=== PATIENT | male | born 1960 | race Caucasian/White ===

== ENCOUNTER 2017-05-10 09:00 | Emergency (ER) | payer SELFPAY ==
[~2017-05-10] VITALS: Ht 162.6 cm; Wt 81.0 kg
[2017-05-10 09:02] VITALS: Ht 162.6 cm; Wt 81.0 kg
[2017-05-10 10:04] LABS: ADD UMIC NO; UR ASCORBIC ACID NEGATIVE (NEGATIVE); UR BILIRUBIN (Dip) NEGATIVE (NEGATIVE); UR BLOOD (Dip) NEGATIVE (NEGATIVE); UR CLARITY CLEAR (CLEAR); UR COLOR STRAW (YELLOW); UR GLUCOSE (Dip) NEGATIVE (NEGATIVE); UR KETONES (Dip) NEGATIVE (NEGATIVE); UR LEUKOCYTE ESTERASE (Dip) NEGATIVE Leu/ul (NEGATIVE); UR NITRITE (Dip) NEGATIVE (NEGATIVE); UR SPECIFIC GRAVITY (Dip) 1.009 (1.003-1.030); UR TOTAL PROTEIN (Dip) NEGATIVE (NEGATIVE); UR UROBILINOGEN (Dip) NEGATIVE (NEGATIVE)
--- NOTE | 2017-05-10 11:46 | RADRPT ---
PROCEDURE: Scrotal ultrasound CLINICAL INDICATION: Scrotal pain. TECHNIQUE: Scrotal ultrasound was performed with sagittal and transverse views. Rao scale and co hallie imaging was performed. Images were reviewed on high resolution PACS monitors. COMPARISON: None available FINDINGS: The right testicle measures 3.5 x 1.8 x 2.70 cm. There is normal size and echogenicity and morphology of the right testicle with normal blood flow. There is a 6 mm right epididymal head cyst. The epididymis is otherwise unremarkable. Small right hydrocele. No evidence of right sided varicocele. The left testicle measures 2.6 x 1.8 x 3.7 cm. There is normal size and echogenicity and morphology of the left testicle with normal blood flow. The left epididymis is normal. There is borderline left varicocele. There is no evidence of left hydrocele. Soft tissues are unremarkable. IMPRESSION: 1. Borderline left varicocele. 2. Small right hydrocele. 3. 6 mm right epididymal head cyst, normal variant. RPTAT: QQ .Reyes Roth MD, Date Time Electronically viewed and signed by .Reyes Roth MD, on 05/10/2017 11:45 .M/
--- NOTE | 2017-05-10 12:30 | ERD ---
ER Documentation Chief Complaint Date/Time DATE: 05/10/17 TIME: 12:20 Chief Complaint frequent urination and testicular pain x 3 months HPI 56-year-old male patient with a past medical history of diabetes, hypertension, hyperlipidemia presents to the ED complaining of bilateral testicular pain since 3 months ago as well as burning with urination since 1 week ago. States that he feels like at times he has urinary retention. Reports that he will also urinate 8 times per day. Describes the pain as a pulsating sensation. States he is taking metformin, losartan and amlodipine. States that his blood sugar is 120 today. Denies any chest pain, shortness of breath, abdominal pain , nausea, vomiting, diarrhea. ROS All systems reviewed and are negative except as per history of present illness. Allergies Allergies: Coded Allergies: No Known Allergy (Unverified , 05/10/17) PMhx/Soc Medical and Surgical Hx: pt denies Surgical Hx History of Surgery: No Anesthesia Reaction: No Hx Neurological Disorder: No Hx Respiratory Disorders: No Hx Cardiac Disorders: Yes (HTN) Hx Psychiatric Problems: No Hx Miscellaneous Medical Probl: Yes (DM) Hx Alcohol Use: No Hx Substance Use: No Hx Tobacco Use: No Smoking Status: Never smoker Physical Exam Vitals Vital Signs Date Time Temp Pulse Resp B/P Pulse Ox O2 Delivery O2 Flow Rate FiO2 05/10/17 09:02 97.5 58 18 156/83 98 Physical Exam Const: Nwu-[id number]-aznpessac, well-nourished. In no acute distress. Head: Atraumatic, normocephalic Eyes: Normal Conjunctiva without injection. No purulent discharge. ENT: Normal external ear, nose. Moist oropharynx without tonsillar exudates. Non -erythematous pharynx. Uvula midline. No drooling. No trismus. Neck: No cervical midline tenderness. Full range of motion. No meningismus. No cervical lymphadenopathy. No JVD. Resp: Clear to auscultation bilaterally. No wheezing, rhonchi, rales, or crackles. No accessory muscle use. No retractions. Cardio: Regular rate and rhythm. No murmurs, rubs or gallops. Abd: Soft, nontender, non distended. Normal bowel sounds. No palpable masses. No rebound tenderness. No guarding. Negative McBurney's point. Negative psoas sign. Negative obturator sign. : Uncircumcised penis. No phimosis. No paraphimosis. No penile discharge. No edema or erythema or warmth to touch. Tenderness palpation of the bilateral testicles. Skin: No petechiae or rashes Back: No midline tenderness. No CVA tenderness. Ext: No cyanosis, or edema. Neur: Awake and alert. Normal gait. Normal coordination. Psych: Normal Mood and Affect Results 24 hrs Laboratory Tests Test 05/10/17 09:36 Urine Color STRAW Urine Clarity CLEAR Urine pH 5.0 Urine Specific [place] 1.009 Urine Ketones NEGATIVEmg/dL Urine Nitrite NEGATIVEmg/dL Urine Bilirubin NEGATIVEmg/dL Urine Urobilinogen NEGATIVEmg/dL Urine Leukocyte Esterase NEGATIVELeu/ul Urine Hemoglobin NEGATIVEmg/dL Urine Glucose NEGATIVEmg/dL Urine Total Protein NEGATIVEmg/dl Procedures/MDM This is a 56-year-old male patient with a past medical history of diabetes, hypertension, hyperlipidemia presents to the ED complaining of testicular pain and intermittent frequent urination and urinary retention. Patient is afebrile and nontoxic-appearing. Patient has normal vital signs. A scrotal ultrasound and urinalysis was ordered to further evaluate patient. PROCEDURE: Scrotal ultrasound CLINICAL INDICATION: Scrotal pain. TECHNIQUE: Scrotal ultrasound was performed with sagittal and transverse views. Rao scale and color imaging was performed. Images were reviewed on high resolution PACS monitors. COMPARISON: None available FINDINGS: The right testicle measures 3.5 x 1.8 x 2.70 cm. There is normal size and echogenicity and morphology of the right testicle with normal blood flow. There is a 6 mm right epididymal head cyst. The epididymis is otherwise unremarkable. Small right hydrocele. No evidence of right sided varicocele. The left testicle measures 2.6 x 1.8 x 3.7 cm. There is normal size and echogenicity and morphology of the left testicle with normal blood flow. The left epididymis is normal. There is borderline left varicocele. There is no evidence of left hydrocele. Soft tissues are unremarkable. IMPRESSION: 1. Borderline left varicocele. 2. Small right hydrocele. 3. 6 mm right epididymal head cyst, normal variant. Urinalysis showed no leukocyte esterase, nitrite, hematuria. Patient has a left varicocele, small right hydrocele and 6 mm right epididymal head cyst. Low suspicion for testicular torsion, urinary tract infection, pyelonephritis, STDs , prostatitis, or other emergent conditions. Patient strictly instructed to follow up with a urologist for further evaluation and treatment. Patient may likely have BPH and should get further evaluation and treatment. Patient agreed to return for any worsening symptoms and questions were answered. Patient is hemodynamically stable. Departure Diagnosis: Primary Impression: Genitourinary symptoms Condition: Stable Patient Instructions: What Is Varicocele?, Prostate Anatomy, Bph (Enlarged Prostate), Hydrocele, Type Not Specified Referrals: TAMIKO TRIVEDI MD,RYAN URIOSTEGUI,LEROY ADLER,STAR JORDAN,MARIANNE [facility] Usted se rosario hecho un examen mdico de control que le indica que no est en jorge condicin que requiera tratamiento urgente en el Departamento de Emergencia. Un estudio ms profundo y el tratamiento de cornejo condicin pueden esperar sin ningn riesgo hasta que usted sea atendida/o en el consultorio de cornejo mdico o jorge cl yolanda. Es responsabilidad suya arreglar jorge warner para el seguimiento del adriano. MANEJO DE CONDICIONES NO URGENTES EN EL FUTURO 1) Si usted tiene un mdico de atencin primaria: Usted debera llamar a cornejo mdico de atencin primaria antes de venir al departamento de emergencia. Despus de las horas de consultorio, cornejo doctor o cornejo asociado/a est disponible por telfono. El mdico o enfermero de abrahan en el servicio telefnico puede asesorarle por mariajose medio para atender el problema, o adriano contrario se puede programar jorge warner. 2) Si usted no tiene un mdico de atencin primaria: Llame al mdico o clnica de referencia que aparece abajo chicho las horas de consultorio para hacer jorge warner para que le vean. CLINICAS: [facility] [phone] [facility] [phone] [facility] [phone] [facility] [phone] [facility] [phone] [facility]. [phone] [address] [facility] () Usted se rosario hecho un examen mdico de control que le indica que no est en jorge condicin que requiera tratamiento urgente en el Departamento de Emergencia. Un estudio ms profundo y el tratamiento de cornejo condicin pueden esperar sin ningn riesgo hasta que usted sea atendida/o en el consultorio de cornejo mdico o jorge cl yolanda. Es responsabilidad suya arreglar jorge warner para el seguimiento del adriano. MANEJO DE CONDICIONES NO URGENTES EN EL FUTURO 1) Si usted tiene un mdico de atencin primaria: Usted debera llamar a cornejo mdico de atencin primaria antes de venir al departamento de emergencia. Despus de las horas de consultorio, cornejo doctor o cornejo asociado/a est disponible por telfono. El mdico o enfermero de abrahan en el servicio telefnico puede asesorarle por mariajose medio para atender el problema, o adriano contrario se puede programar jorge warner. 2) Si usted no tiene un mdico de atencin primaria: Llame al mdico o condado institucions de referencia que aparece abajo chicho las horas de consultorio para hacer jorge warner para que le vean. SI USTED NO PUEDE PAGAR PARA JEN UN MEDICO puede ir a: [facility] [address] [place] [address] [facility] [address] [place] [address] [facility]LY [facility] [address] [place] [address] [facility] [address] [place], [place] [id number] Additional Instructions: Llame al doctor MAANA y yonny jorge WARNER PARA DENTRO DE 1-2 MAR para jorge referencia a un urlogo para evaluacin adicional y tratamiento. Dgale a la secretaria que nosotros le instruimos hacer esta warner.Avise o llame si cornejo condicin se empeora antes de la warner. Regresa aqui si peor o no mejor. ALESSANDRA MICHAELS PA-C May 10, 2017 12:30
== END 2017-05-10 12:24 | disposition home or self-care (01) ==
LOC: FTE 09:00
DX: N50.811 Right testicular pain (principal); I10 Essential (primary) hypertension; E11.9 Type 2 diabetes mellitus without complications; R30.0 Dysuria; N50.812 Left testicular pain; Z79.84 Long term (current) use of oral hypoglycemic drugs
CPT/HCPCS: 76870; 81003

== ENCOUNTER 2018-06-11 12:05 | Day surgery (SDC) | END 2018-06-11 17:22 | disposition home or self-care (01) ==